=== PATIENT | female | born 1970 ===

== ENCOUNTER → 2019-01-11 | Day surgery (SDC) | payer OTHER ==
[~2019-01-11] MED LIST: Midazolam 2 MG/2 ML VIAL ONE; Propofol 10 mg/ml Inj (20 ML) ONE
--- NOTE | 2019-01-11 05:26 | C.PDOC ---
History Of Present Illness Patient presents to the ER for heavy vaginal bleeding. Denies any pain. LMP 12/13/18. Had blood work done last week. Saw he photo finish photographer who sent her for further evaluation. No f/c/n/v. Chief Complaint (Nursing): Abdominal Pain History Per: Patient History/Exam Limitations: no limitations Onset/Duration Of Symptoms: Days Current Symptoms Are (Timing): Still Present Severity: Moderate Pain Scale Rating Of: 4 Exacerbating Factors: None Alleviating Factors: None Recent travel outside of the [place]: No Abnormal Vaginal Bleeding: Yes Past Medical History Reviewed: Historical Data, Nursing Documentation, Vital Signs Vital Signs: Last Vital Signs Temp 97.9 F 01/11/19 05:13 Pulse 105 H 01/11/19 05:13 Resp 20 01/11/19 05:13 BP 134/89 01/11/19 05:13 Pulse Ox 100 01/11/19 05:13 - Medical History PMH: Anemia Family History: States: No Known Family Hx - Social History Hx Alcohol Use: No Hx Substance Use: No - Immunization History Hx Tetanus Toxoid Vaccination: No Hx Influenza Vaccination: No Hx Pneumococcal Vaccination: No Review Of Systems Constitutional: Negative for: Fever, Chills Cardiovascular: Negative for: Chest Pain, Palpitations Respiratory: Negative for: Cough, Shortness of Breath Gastrointestinal: Negative for: Nausea, Vomiting, Abdominal Pain Genitourinary: Positive for: Vaginal Bleeding. Negative for: Dysuria, Pelvic Pain Neurological: Negative for: Weakness, Numbness Psych: Negative for: Anxiety Physical Exam - Physical Exam Appears: Non-toxic Skin: Warm, Dry Head: Normacephalic Oral Mucosa: Moist Chest: Symmetrical, No Tenderness Cardiovascular: Rhythm Regular Respiratory: No Rales, No Rhonchi, No Wheezing Gastrointestinal/Abdominal: Soft, Tenderness (Mild suprapubic), No Guarding, No Rebound Back: No CVA Tenderness Neurological/Psych: Oriented x3 ED Course And Treatment O2 Sat by Pulse Oximetry: 100 Pulse Ox Interpretation: Normal Disposition Counseled Patient/Family Regarding: Studies Performed, Diagnosis - Disposition Disposition Time: 05:26 Condition: FAIR Forms: [facility] (Malay) - Clinical Impression Clinical Impression: DUB (dysfunctional uterine bleeding) - Scribe Statement The provider has reviewed the documentation as recorded by the Scribe Regan Clark All medical record entries made by the Scribe were at my direction and personally dictated by me. I have reviewed the chart and agree that the record accurately reflects my personal performance of the history, physical exam, medical decision making, and the department course for this patient. I have also personally directed, reviewed, and agree with the discharge instructions and disposition. Physician Patient Turnover Patient Signed Over To: Jan Landeros Handoff Comments: pending disposition
[2019-01-11 06:40] LABS: BASO % 0.4 % (0.0-2.0); EOS # 0.1 K/uL (0.0-0.7); EOS % 1.2 % (0.0-4.0); HEMOGLOBIN 10.7 g/dL (11.0-16.0); LYMPH # 3.1 K/uL (1.0-4.3); LYMPH % 36.6 % (20.0-40.0); MEAN CELL VOLUME 69.9 fL (81.0-99.0); MEAN CORPUSCULAR HEMOGLOBIN 21.2 pg (27.0-31.0); MEAN CORPUSCULAR HGB CONC 30.3 g/dL (33.0-37.0); MEAN PLATELET VOLUME 7.9 fL (7.2-11.7); MONO # 0.5 K/uL (0.0-0.8); MONO % 5.5 % (0.0-10.0); NEUT # 4.8 K/uL (1.8-7.0); NEUT % 56.3 % (50.0-75.0); RBC 5.06 Mil/uL (3.80-5.20); RED CELL DISTRIBUTION WIDTH 18.4 % (11.5-14.5); WHITE BLOOD COUNT 8.6 K/uL (4.8-10.8)
[2019-01-11 06:53] LABS: INR 1.1; PROTHROMBIN TIME 12.4 SECONDS (9.7-12.2)
[2019-01-11 06:59] LABS: BLOOD UREA NITROGEN 14 mg/dL (7-17); CALCIUM 10.2 mg/dl (8.6-10.4); GFR NON-AFRICAN AMERICAN > 60
[2019-01-11 07:02] LABS: SQUAMOUS EPITHIAL 5 /hpf (0-5); URINE BILIRUBIN NEGATIVE (NEGATIVE); URINE BLOOD NEGATIVE (NEGATIVE); URINE CLARITY Hazy (Clear); URINE COLOR Yellow (YELLOW); URINE GLUCOSE (UA) NORMAL (Normal); URINE LEUKOCYTE ESTERASE TRACE Leu/uL (Negative); URINE PROTEIN NEGATIVE (NEGATIVE); URINE UROBILINOGEN NORMAL mg/dL (0.2-1.0)
[2019-01-11 07:05] LABS: HCG,QUALITATIVE URINE NEGATIVE (NEGATIVE)
--- NOTE | 2019-01-11 08:42 | CP.PCM.HP ---
History of Present Illness - History of Present Illness History of Present Illness: 48 y/o wiht excessive and heavy bleeing over past 6 months with intesne crampign pain. pt rpeorts hse had evauitn and was advsied for an endoemtiral biys. pt state the bleedign has been on stop x 2 months adn was adived to come to er. pt dneis any fever, chills naie, vomitng. Present on Admission - Present on Admission Any Indicators Present on Admission: No Review of Systems - Constitutional Constitutional: As Per HPI - EENT Eyes: As Per HPI - Cardiovascular Cardiovascular: As Per HPI - Respiratory Respiratory: As Per HPI - Gastrointestinal Gastrointestinal: As Per HPI - Genitourinary Genitourinary: As Per HPI - Reproductive: Female Reproductive:Female: As Per HPI, Menses Variable, Abnormal Vaginal Bleeding - Menstruation Menstruation: As Per HPI - Musculoskeletal Musculoskeletal: As Per HPI - Integumentary Integumentary: As Per HPI Past Patient History - Infectious Disease Hx of Infectious Diseases: None - Past Social History Smoking Status: Never Smoked - HEMATOLOGICAL/ONCOLOGICAL Hx Anemia: Yes - INTEGUMENTARY Hx Dermatological Problems: Yes Hx Eczema: Yes - PSYCHIATRIC Hx Substance Use: No - SURGICAL HISTORY Hx Surgeries: Yes Other/Comment: Polypectomy - ANESTHESIA Hx Anesthesia: Yes Hx Anesthesia Reactions: No Meds Allergies/Adverse Reactions: Allergies Allergy/AdvReac Type Severity Reaction Status Date / Time No Known Allergies Allergy Verified 01/11/19 05:20 Physical Exam - Constitutional Appears: Well, Non-toxic, No Acute Distress - Head Exam Head Exam: ATRAUMATIC, NORMAL INSPECTION - Eye Exam Eye Exam: EOMI, Normal appearance - ENT Exam ENT Exam: Mucous Membranes Moist - Neck Exam Neck exam: Positive for: Normal Inspection - Respiratory Exam Respiratory Exam: Clear to Auscultation Bilateral, NORMAL BREATHING PATTERN - Cardiovascular Exam Cardiovascular Exam: +S1, +S2 - GI/Abdominal Exam GI & Abdominal Exam: Normal Bowel Sounds, Soft, Tenderness Additional comments: extenral geintail : gorslsl y blodo n perinuem Vagian; dark red blood, clots cervix dark red blood uteurs; enalrged philly;x non tender b/l anus/peirnum grossly emily. Results - Vital Signs Recent Vital Signs: Last Vital Signs Temp 97.9 F 01/11/19 06:54 Pulse 100 H 01/11/19 06:54 Resp 20 01/11/19 06:54 BP 117/78 01/11/19 06:54 Pulse Ox 99 01/11/19 06:54 - Labs Result Diagrams: 01/11/19 06:37 01/11/19 06:37 Labs: Laboratory Results - last 24 hr 01/11/19 01/11/19 01/11/19 06:28 06:37 06:37 WBC 8.6 RBC 5.06 Hgb 10.7 L Hct 35.3 MCV 69.9 L MCH 21.2 L MCHC 30.3 L RDW 18.4 H Plt Count 543 H MPV 7.9 Neut % (Auto) 56.3 Lymph % (Auto) 36.6 Parke % (Auto) 5.5 Eos % (Auto) 1.2 Baso % (Auto) 0.4 Neut # (Auto) 4.8 Lymph # (Auto) 3.1 Parke # (Auto) 0.5 Eos # (Auto) 0.1 Baso # (Auto) 0.0 Differential Comment PT 12.4 H INR 1.1 APTT 38 H Sodium Potassium Chloride Carbon Dioxide Anion Gap BUN Creatinine Est GFR ( Amer) Est GFR (Non-Af Amer) POC Glucose (mg/dL) 108 Random Glucose Calcium Urine Color Urine Clarity Urine pH Ur Specific Taylor Urine Protein Urine Glucose (UA) Urine Ketones Urine Blood Urine Nitrate Urine Bilirubin Urine Urobilinogen Ur Leukocyte Esterase Urine WBC (Auto) Urine RBC (Auto) Ur Squamous Epith Cells Urine HCG, Qual 01/11/19 01/11/19 06:37 06:39 WBC RBC Hgb Hct MCV MCH MCHC RDW Plt Count MPV Neut % (Auto) Lymph % (Auto) Parke % (Auto) Eos % (Auto) Baso % (Auto) Neut # (Auto) Lymph # (Auto) Parke # (Auto) Eos # (Auto) Baso # (Auto) Differential Comment PT INR APTT Sodium 140 Potassium 3.6 Chloride 103 Carbon Dioxide 24 Anion Gap 17 BUN 14 Creatinine 0.8 Est GFR ( Amer) > 60 Est GFR (Non-Af Amer) > 60 POC Glucose (mg/dL) Random Glucose 110 H Calcium 10.2 Urine Color Yellow Urine Clarity Hazy Urine pH 5.0 Ur Specific Taylor 1.027 Urine Protein Negative Urine Glucose (UA) Normal Urine Ketones Negative Urine Blood Negative Urine Nitrate Negative Urine Bilirubin Negative Urine Urobilinogen Normal Ur Leukocyte Esterase Trace Urine WBC (Auto) 1 Urine RBC (Auto) 2 Ur Squamous Epith Cells 5 Urine HCG, Qual Negative Assessment & Plan (1) Fibroids Assessment and Plan: 48 yo with AUB failed medical therapy 1. 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 consent obtained 3. npo,ivf 4. labs 5. type and corss Status: Acute (2) DUB (dysfunctional uterine bleeding) Status: Acute
[2019-01-11] MEDS: HYDROmorphone 0.5 mg/0.5 ml ISec IVP PRN ×3 (09:09→09:57)
[2019-01-11 11:26] VITALS: BP 114/66; PULSE 76; RESP 15; TEMP 97.8; O2SAT 99
--- NOTE | 2019-01-11 18:15 | OP ---
PROCEDURE DATE: 01/11/2019 PREOPERATIVE DIAGNOSES: Abnormal uterine bleeding, failed medical management, leiomyoma. POSTOPERATIVE DIAGNOSES: Abnormal uterine bleeding, failed medical management, leiomyoma. PROCEDURE PERFORMED: Operative hysteroscopy, hysteroscopic myomectomy, dilation and curettage. SURGEON: Vibha Deng MD. SPECIMEN: Endometrial polyp, endometrial curettings, submucosal myoma. ANESTHESIA: General LMA. OPERATIVE FINDINGS: Mass noted protruding into the cavity from the anterior wall, carefully suctioned using MyoSure device, bilateral ostia were visualized. No other intracavitary processes. COMPLICATIONS: None. ESTIMATED BLOOD LOSS: 5 mL. DESCRIPTION OF PROCEDURE: The patient was taken to the operating room where she was given general anesthesia. Once found to be adequate, she was placed on the operating table in the dorsal supine position with legs supported using stirrups.. The patient was then prepped and draped in the usual sterile fashion. A time-out confirmed correct patient and correct procedure, bimanual exam was performed, A Ellis retractor was placed in the anterior and posterior fornix of the vagina. The cervix was adequately visualized. A single-tooth tenaculum was placed in the anterior lip of the cervix. Endocervical curettings were obtained with a [facility] curette and sent to pathology on [facility]. The uterus was then sounded to 8 cm. Following this, the cervix was sequentially dilated to allow for introduction of the hysteroscope under direct visualization using normal saline as the distention media. There was a mass noted anterior close to the lower uterine segment which was carefully resected using MyoSure device. Bilateral ostia were visualized. There was no other masses. Hysteroscope was then removed. Gentle curettage was done. All instruments were removed. There was good hemostasis at the tenaculum puncture site. At the end of the procedure, all needle, sponge, and instrument counts were noted and correct x2. The patient tolerated the procedure well and was transferred to the recovery room in stable condition. Vibha Deng MD
== END | disposition home or self-care (01) ==
LOC: C.ER 05:06 → C.SDS 06:27
PROVIDERS: ATTEND Obstetrics & Gynecology
DX: D25.0 Submucous leiomyoma of uterus (principal); N84.0 Polyp of corpus uteri; N72 Inflammatory disease of cervix uteri; N93.8 Other specified abnormal uterine and vaginal bleeding; D50.0 Iron deficiency anemia secondary to blood loss (chronic); J45.909 Unspecified asthma, uncomplicated; Z98.890 Other specified postprocedural states; Z79.899 Other long term (current) drug therapy
CPT/HCPCS: 36415; 58561; 80048; 81001; 82948; 84703; 85025; 85610; 85730; 88305; 99285; J1170; J2250; J2704; J3010